=== PATIENT | male | born 1990 | race Caucasian/White ===

== ENCOUNTER 2019-12-30 14:27 | Emergency (ER) | payer OTHER, SELFPAY ==
[2019-12-30 14:28] VITALS: BP 138/87; PULSE 91; RESP 16; TEMP 36.6; O2SAT 100; BMI 25.8
--- NOTE | 2019-12-30 14:57 | EKG12_ITS ---
Test Reason : SYNCOPE Blood Pressure : / mmHG Vent. Rate : 070 BPM Atrial Rate : 070 BPM P-R Int : 134 ms QRS Dur : 100 ms QT Int : 388 ms P-R-T Axes : 052 008 036 degrees QTc Int : 419 ms Sinus rhythm with marked sinus arrhythmia Otherwise normal ECG Confirmed by VIRGIE LOZANO, JOCELYN ([id number]), graphics editor HUMBERTO MORALES ([id number]) on 01/02/2020 2:48:42 PM Referred By: JUAN Confirmed By:ASIA GARVIN MD
--- NOTE | 2019-12-30 15:06 | ED.DCSUM_ITS ---
History of Present Illness Chief Complaint: Dizziness Informant: Patient Onset: Today Context: Sudden Onset Timing: Waxes and wanes Quality: dizzy Location: room spinning Current Severity: Mild Maximum Severity: Severe Worsened by: movement Relieved by: nothing Associated Symptoms: tinnitus Narrative: Patient presents with dizziness and tinnitus in his right ear. He had a sudden onset of dizziness earlier today while at his desk working from home. He states it lasted 20 to 30 minutes and resolved. He has had several more episodes which has prompted his visit to the emergency department. He is also having tinnitus in his right ear. Denies headache or neck pain. He is not lightheaded. No nausea or vomiting. No visual changes. No loss of vision. No weakness or paresthesias. No difficulties with speech or ambulation. He is not anticoagulated. Denies of fever. Denies upper respiratory symptoms peer denies chest pain or shortness of breath. Denies history of similar symptoms. Prior similar symptoms: No Recent Illness/Hospitalization: No Past Medical History - Allergies and Home Meds Allergies/Adverse Reactions: Allergies No Known Allergies Allergy (Verified 12/30/19 14:27) Primary Care Physician: Jeffrey Green MD [Primary Care Provider] - Prior records reviewed: Yes Past Medical History: None Surgical History: no surgical history Lives: With Family Smoking Status: Never smoker Alcohol: None Drugs: None Review of Systems All systems negative except as indicated General: Denies: Chills, Fever, Sweats Eyes: Denies: Visual changes - bilaterally, Diplopia ENT: Denies: Rhinorrhea, Sore throat Cardiovascular: Denies: Chest pain, Palpitations Respiratory: Denies: Dyspnea, Cough, Dyspnea on exertion Gastrointestinal: Denies: Abdominal pain, Nausea, Vomiting, Diarrhea, Melena, Hematochezia Genitourinary: Denies: Dysuria, Hematuria, Frequency Musculoskeletal: Denies: Back pain, Swelling, Extremity Pain Skin: Denies: Rash, Abscess, Abrasions, Wounds Neurological: Denies: Headache, Weakness, Parasthesia, Numbness Physical Exam Vital Signs/Narrative: Vital Signs Temp Pulse Resp BP Pulse Ox 12/30/19 14:28 97.8 F 91 16 138/87 H 100 Inital Vital Signs reviewed: Yes General: Well nourished, Well developed, No Acute Distress Head: Normocephalic, Atraumatic Eyes: Perrl, EOMI ENT: Moist mucous membranes, No rhinorrhea, TM's clear Neck: Supple, Nontender Cardiovascular: Regular rate, Regular rhythm, No murmurs Respiratory: No distress, CTA bilaterally, Chest nontender Abdomen: Soft, Nontender, Nondistended, Normal bowel sounds Back: Nontender, Normal Inspection Extremities: Nontender, No edema Skin: Normal color, No rash Neurological: Alert, Oriented x3, Cranial nerves II-XII grossly intact, Normal Strength, Normal Sensation, Normal Gait Psychological: Normal affect, Normal Mood Diagnostic/Tx/Re-eval Impressions Brain CT 12/30/19 15:10 IMPRESSION: Normal unenhanced CT scan of the brain. Electronically Signed: Carl Lynnette, at 15:33 EDT , Service support , 12/30/19 15:10 CT Brain [Brain/Head without Contrast] [CT] Stat Laboratory Results 12/30/19 12/30/19 15:00 15:00 WBC 5.6 RBC 4.72 Hgb 14.1 Hct 42.1 MCV 89.2 MCH 29.9 MCHC 33.5 RDW Std Deviation 38.8 RDW Coeff of Nisa 11.9 Plt Count 343 MPV 8.9 Immature Gran % (Auto) 0.200 Neut % (Auto) 59.3 Lymph % (Auto) 25.3 [place] % (Auto) 11.6 H Eos % (Auto) 2.9 Baso % (Auto) 0.7 Absolute Neuts (auto) 3.3 Absolute Lymphs (auto) 1.41 Nucleated RBC % 0 Sodium 138 Potassium 3.7 Chloride 105 Carbon Dioxide 28.0 Anion Gap 5 BUN 14 Creatinine 0.99 Estim Creat Clear Calc 102.01 Est GFR (MDRD) Af Amer 114 Est GFR (MDRD) Non-Af 94 BUN/Creatinine Ratio 14.1 Glucose 87 Calcium 9.1 - EKG Initial EKG Interpretation: Sinus Rhythm, No Acute Injury Pattern Prior: No Prior - Medical Decision Making Patient was given an Antivert. CT brain unremarkable. EKG was sinus rhythm. His laboratory work was unremarkable as well. Repeat exam he does feel well. I ambulated the patient and he does so without difficulty. He is not ataxic. Repeat neurological exam remains nonfocal. Patient will be discharged with a prescription for Antivert he was advised to follow-up with his primary care physician he was given return precautions and he was agreeable with plan of care all questions were answered ED Disposition - Plan for ED Patient: Disposition: Home or Assisted Living Diagnosis: Vertigo Instructions: ED BPV Vertigo Prescriptions: Meclizine HCl [Antivert] 25 mg PO 4X/DAY PRN PRN #20 tab PRN Reason: Dizziness Prescription Printed Referrals: Jeffrey Green MD [Primary Care Provider] - Gio Rascon MD [STAFF PHYSICIAN] -
--- NOTE | 2019-12-30 15:10 | CT_ITS ---
STUDY: CT BRAIN WITHOUT CONTRAST REASON FOR EXAM: Male, 29 years old. Dizziness and ringing in right ear RADIATION DOSAGE (If Supplied By Facility): CTDIvol = ( 44.99 ) mGy, DLP = ( 796.11 ) mGycm TECHNIQUE: Transaxial CT imaging of the brain was performed without administration of intravenous contrast material. Individualized dose optimization techniques were used for this CT. COMPARISON: No relevant priors. FINDINGS: Normal soft tissue structures. Normal calvarium. Normal size ventricles and extra-axial spaces for the patient''s age. Normal white matter tracts of the cerebral hemispheres. Normal basal ganglia and thalami. Normal brainstem. Normal cerebellum. There is no intracranial hemorrhage. There are no findings of an acute ischemic infarction. Normal visualized paranasal sinuses. CT/Brain/Head without Contrast IMPRESSION: Normal unenhanced CT scan of the brain. Electronically Signed: Carl Church, at 15:33 EDT , Service support ,
[2019-12-30 15:15] LABS: Absolute Lymphocyte Count 1.41 X10^3/uL (0.83-4.51); Absolute Neutrophil Count 3.3 X10^3/uL (2.0-7.7); Basophil# 0.04 X10^3/uL; Basophil% 0.7 % (0-1); Eosinophil# 0.16 X10^3/uL; Eosinophils% 2.9 % (0-5); Hematocrit 42.1 % (40-54); Hemoglobin 14.1 g/dL (13.0-16.5); Lymphocyte # 1.41 X10^3/ul (4.0); Lymphocyte % 25.3 % (19-41); Mean Corp Hgb Conc 33.5 g/dL (32-36); Mean Corpuscular Hgb 29.9 pg (27.0-32.0); Mean Corpuscular Volume 89.2 fL (80-94); Mean Platelet Vol. 8.9 fl (6.2-12.0); Monocyte# 0.65 X10^3/uL; Monocyte% 11.6 % (0-10); NRBC Flagged by Analyzer 0 % (0-5); Neutrophil # 3.31 X10^3/uL (2.7-7.7); Neutrophil % 59.3 % (47-70); Platelet Count 343 K/mm3 (150-450); RBC Distribution Width CV 11.9 % (11.6-14.6); RBC Distribution Width SD 38.8 fl (35.1-43.9); Red Blood Count 4.72 M/mm3 (4.6-6.2); White Blood Count 5.6 K/mm3 (4.4-11.0)
[2019-12-30 15:37] LABS: Anion Gap 5 (5-15); BUN 14 mg/dL (7-18); BUN/Creat Ratio 14.1 RATIO (10-20); Calcium,Total 9.1 mg/dL (8.5-10.1); Chloride 105 mmol/L (98-107); Creatinine, Serum 0.99 mg/dL (0.70-1.30); EST Glomerular Filtration Rate 94 mL/min (>60); Est Glom Filt Rate - Afr Amer 114 mL/min (>60); Estimated Creatinine Clearance 102.01 ml/min; Glucose 87 mg/dL (74-106); Potassium 3.7 mmol/L (3.5-5.1); Sodium Level 138 mmol/L (136-145)
[2019-12-30] MEDS: Meclizine HCl 25 MG Tablet PO (16:10)
== END 2019-12-30 16:31 | disposition home or self-care (01) ==
PROVIDERS: Emergency Provider Physician Assistant Medical; PCP Family Medicine
DX: R42 Dizziness and giddiness (principal)
CPT/HCPCS: 70450; 80048; 85025; 93005; 99284; A4216

== ENCOUNTER 2023-03-05 19:33 | Emergency (ER) | payer OTHER, SELFPAY ==
[2023-03-05 19:34] VITALS: BP 145/87; PULSE 100; RESP 16; TEMP 36.4; O2SAT 99; BMI 28.1
--- NOTE | 2023-03-05 20:01 | US_ITS ---
INDICATION: PAIN EXAMINATION: Ultrasound US Venous Duplex LE Unilat / Limited TECHNIQUE: Garcia scale, pulse wave, and color flow Doppler imaging was performed of the lower extremity venous system. The bilateral greater saphenous, common femoral, femoral, and popliteal veins were interrogated. COMPARISON: No relevant prior comparison study available FINDINGS: There is normal compression, augmentation, and signal throughout the visualized deep lower extremity veins. No mass or fluid collection. US/Venous Duplex Imag/Limited/Uni IMPRESSION: No sonographic evidence of deep venous thrombosis in the right lower extremity. Electronically Signed: Torito Woo MD at 20:36 EST ,
[2023-03-05 22:25] VITALS: BP 132/78; PULSE 84; RESP 16; O2SAT 98
--- NOTE | 2023-03-05 23:40 | EDS_ITS ---
HPI History of Present Illness Chief Complaint: Lower Extremity Injury Narrative Narrative: 32-year-old male with nontraumatic right knee pain. He states that hurts above his knee anteriorly and is gradually gone behind his knee. Patient does admit to some recent travel by plane. No history of DVT/PE. No other risk factors. No chest pain or shortness of breath. Patient states his pain is worsened with ambulation. Is better with rest. Patient went to urgent care today about his knee evaluated and they had concern that he may have developed a DVT. He was sent to the emergency room for a DVT study. PFSH PFSH Home Medications atorvastatin 10 mg tablet 10 mg PO .once a day 03/05/23 [History Last Taken Unknown] baclofen 10 mg tablet 10 mg PO PRN PRN muscle spasm 03/05/23 [History Last Taken Unknown] bupropion HCl 150 mg 24 hr tablet, extended release 150 mg PO .once a day 03/05/23 [History Last Taken Unknown] Allergy/AdvReac Type Severity Reaction Status Date / Time No Known Allergies Allergy Verified 03/05/23 19:37 Social History Smoking Status: Never smoker ROS ROS ED Constitutional Constitutional ED: Denies chills, fever(s) or sweats Eyes Eyes: Denies blurry vision or change in vision ENT ENT ED: Denies ear pain or sore throat Cardiovascular Cardiovascular: Denies chest pain, palpitations or racing heartbeat Respiratory/Chest Respiratory/Chest: Denies cough, dyspnea or sputum Gastrointestinal Gastrointestinal: Denies abdominal pain, constipation, diarrhea, nausea or vomiting Genitourinary Genitourinary ED: Denies dysuria, hematuria or urinary frequency Musculoskeletal Musculoskeletal: Reports other Details: Knee pain ; Denies arthralgias, myalgias or neck pain Integumentary Denies abscess, Abrasions or rash Neurologic Neurologic: Denies headache(s), paresthesias or weakness Psychiatric Psychiatric: Denies anxiety, depression, suicidal ideation or suicidal thoughts Endocrine Endocrinology: Denies polydipsia or polyuria EXAM Physical Exam Const Vital Signs: 03/05/23 19:34 03/05/23 22:25 Temperature 97.6 F L Temperature Source Temporal Pulse Rate 100 84 Respiratory Rate 16 16 Blood Pressure 145/87 H 132/78 H Blood Pressure Mean 106 96 Pulse Ox 99 98 Oxygen Delivery Method Room Air Positive well nourished General Appearance ED: NAD HEENT normocephalic and atraumatic Resp normal respiratory effort Cardio regular rate and regular rhythm Extremity Extremity Narrative: Mild swelling of the right knee. No ligamentous laxity. No pain with valgus or varus strain. No evidence of septic joint. No shortness range of motion pain. Mild tenderness posterior to the right knee. No cords palpated. Compartments of the right calf are soft. Neuro oriented x3 Sensorium / Orientation: alert Motor Exam: strength 5/5 throughout Psych mental status grossly normal Skin no wounds MDM MDM MDM Narrative Medical decision making narrative: Patient presenting with knee pain. It is nontraumatic. Patient was concerned for DVT. DVT study today was negative. Patient counseled on findings. I recommended ice, compression, anti-inflammatories. Patient amenable to this. Discharged home in stable condition. Impression: 1 right knee pain Radiography Diagnostic Testing: Clinical Impression(s) from Imaging Studies Venous Duplex 03/05/23 20:01 IMPRESSION: No sonographic evidence of deep venous thrombosis in the right lower extremity. Electronically Signed: Torito Woo MD at 20:36 EST Reading Location ID and State: [address] [place] [address] Tel , Service support , Discharge Plan Triage Chief Complaint: Lower Extremity Injury ED Provider: Seferino Dorman Dx/Rx/DC Orders Instructions: ED Knee Effusion Prescriptions: No Action atorvastatin 10 mg tablet 10 mg PO .once a day Patient Comments: take 1 tablet by mouth at bedtime bupropion HCl 150 mg tablet extended release 24 hr 150 mg PO .once a day Patient Comments: take 1 tablet by mouth once daily baclofen 10 mg tablet 10 mg PO PRN PRN (Reason: muscle spasm) Patient Comments: take 1 tablet by mouth three times a day NEEDED FOR MUSCLE SPASMS Primary Care Provider: Jeffrey Green Referrals: Jeffrey Green MD [Primary Care Provider] - Disposition Disposition: Home, Self Care Discharge Date/Time: 03/05/23 22:26
== END 2023-03-05 22:26 | disposition home or self-care (01) ==
PROVIDERS: Emergency Provider Student in an Organized Health Care Education/Training Program; PCP Family Medicine; Visit Provider Student in an Organized Health Care Education/Training Program
DX: M25.561 Pain in right knee (principal); M25.461 Effusion, right knee
CPT/HCPCS: 93971; 99282